=== PATIENT | female | born 1950 | race Caucasian/White ===

== ENCOUNTER 2016-07-13 06:37 | Outpatient (CLI) | payer BC, MEDICAID | END 2016-07-13 06:38 | disposition home or self-care (01) | DX: E11.9 Type 2 diabetes mellitus without complications (principal) ==

== ENCOUNTER 2016-10-18 07:45 | Outpatient (CLI) | payer BC, MEDICAID | END 2016-10-18 07:46 | disposition home or self-care (01) | DX: E11.9 Type 2 diabetes mellitus without complications (principal); E05.90 Thyrotoxicosis, unspecified without thyrotoxic crisis or storm ==

== ENCOUNTER 2017-01-25 09:41 | Emergency (ER) | payer OTHER, BC ==
[2017-01-25 09:50] VITALS: BP 174/64
[2017-01-25] MEDS ORDERED: ACETAMINOPHEN 325 MG TABLET PO STA (10:50)
[2017-01-25] MEDS ORDERED: LIDOCAINE PATCH 5% TOP STA (10:50)
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
[2017-01-25] MEDS ORDERED: LIDOCAINE PATCH 5% TOP ONE (10:56)
[2017-01-25] MEDS ORDERED: ACETAMINOPHEN 325 MG TABLET PO ONE (10:56)
--- NOTE | 2017-01-25 11:52 | XRAY Preliminary Report ---
Exam: XR Chest 2 View PA/LAT IMPRESSION: 1. No acute intrathoracic plain film abnormality. 2. Relatively stable nodular opacities projecting over the right upper lobe. [facility] SITE ID: [id number]
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
== END 2017-01-25 12:18 | disposition home or self-care (01) ==
LOC: ED 09:41
DX: S13.9XXA Sprain of joints and ligaments of unspecified parts of neck, initial encounter (principal); S33.5XXA Sprain of ligaments of lumbar spine, initial encounter; S20.219A Contusion of unspecified front wall of thorax, initial encounter; V43.52XA Car driver injured in collision with other type car in traffic accident, initial encounter; Y92.488 Other paved roadways as the place of occurrence of the external cause; I10 Essential (primary) hypertension; E11.9 Type 2 diabetes mellitus without complications; Z79.4 Long term (current) use of insulin; M19.90 Unspecified osteoarthritis, unspecified site
CPT/HCPCS: 71020; 99283; A9270; 84484

== ENCOUNTER 2017-03-31 08:00 | Outpatient (CLI) | payer MEDICARE, BC ==
[2017-03-31 13:21] LABS: CALCIUM 9.2 mg/dL (8.5-10.3); CREATININE 1.4 mg/dL (0.4-1.0); POTASSIUM 4.3 mmol/L (3.5-5.0)
[2017-03-31 13:47] LABS: THYROID STIMULATING HORMONE 1.48 uIU/mL (0.34-5.60)
[2017-03-31 14:15] LABS: HEMOGLOBIN A1C 1.17 g/dL
== END 2017-03-31 08:01 | disposition home or self-care (01) ==
LOC: LAB.N 08:00
PROVIDERS: ATTEND Family Medicine
DX: E05.90 Thyrotoxicosis, unspecified without thyrotoxic crisis or storm (principal); N18.9 Chronic kidney disease, unspecified; E11.9 Type 2 diabetes mellitus without complications
CPT/HCPCS: 36415; 80048; 83036; 84439; 84443

== ENCOUNTER 2017-08-16 08:00 | Outpatient (CLI) | payer BC, MEDICARE ==
[2017-08-16 13:03] LABS: CREATININE 1.2 mg/dL (0.4-1.0)
[2017-08-16 13:06] LABS: HB2 TOTAL 13.1 g/dL; HEMOGLOBIN A1C 1.08 g/dL; HEMOGLOBIN A1C % 9.7 % (4.6-6.2)
== END 2017-08-16 08:01 | disposition home or self-care (01) ==
LOC: LAB.N 08:00
PROVIDERS: ATTEND Family Medicine
DX: E11.65 Type 2 diabetes mellitus with hyperglycemia (principal)
CPT/HCPCS: 36415; 80048; 83036

== ENCOUNTER 2017-11-17 07:39 | Outpatient (CLI) | payer MEDICARE ==
[2017-11-17 13:42] LABS: ALBUMIN 4.1 g/dL (3.2-5.5); ALBUMIN/GLOBULIN RATIO 1.3 (1.0-2.2); BILIRUBIN,TOTAL 0.6 mg/dL (0.2-1.0); CALCIUM 8.9 mg/dL (8.5-10.3); CREATININE 1.3 mg/dL (0.4-1.0); TOTAL PROTEIN 7.3 g/dL (6.7-8.2)
[2017-11-17 13:51] LABS: HB2 TOTAL 13.4 g/dL; HEMOGLOBIN A1C 1.15 g/dL
[2017-11-17 14:00] LABS: THYROID STIMULATING HORMONE 1.79 uIU/mL (0.34-5.60)
[2017-11-17 14:02] LABS: FREE T4 (FREE THYROXINE) 0.69 ng/dL (0.58-1.64)
== END 2017-11-17 07:40 ==
LOC: LAB.N 07:39
PROVIDERS: ATTEND Family Medicine
DX: E11.65 Type 2 diabetes mellitus with hyperglycemia (principal); E05.90 Thyrotoxicosis, unspecified without thyrotoxic crisis or storm
CPT/HCPCS: 36415; 80053; 83036; 84439; 84443; 84481

== ENCOUNTER 2018-02-23 07:36 | Outpatient (CLI) | payer MEDICARE ==
[2018-02-23 13:53] LABS: CALCIUM 8.9 mg/dL (8.5-10.3); CREATININE 1.2 mg/dL (0.4-1.0)
[2018-02-23 14:03] LABS: THYROID STIMULATING HORMONE 1.41 uIU/mL (0.34-5.60)
[2018-02-23 14:05] LABS: FREE T4 (FREE THYROXINE) 0.66 ng/dL (0.58-1.64)
[2018-02-23 14:16] LABS: HB2 TOTAL 12.3 g/dL; HEMOGLOBIN A1C 0.99 g/dL; HEMOGLOBIN A1C % 9.5 % (4.6-6.2)
== END 2018-02-23 07:37 ==
LOC: LAB.N 07:36
PROVIDERS: ATTEND Family Medicine
DX: E11.65 Type 2 diabetes mellitus with hyperglycemia (principal); Z79.4 Long term (current) use of insulin; E05.90 Thyrotoxicosis, unspecified without thyrotoxic crisis or storm
CPT/HCPCS: 36415; 80048; 83036; 84439; 84443; 84481

== ENCOUNTER 2018-04-25 11:00 | Outpatient (CLI) | payer MEDICARE ==
--- NOTE | 2018-04-25 13:29 | XRAY Report ---
Reason: hx of inactive TB Procedure Date: 04/25/2018 Accession Number: [id number] / [id number] Procedure: XRN - Chest 1 View X-Ray CPT Code: 54834 FULL RESULT: EXAM: CHEST RADIOGRAPHY EXAM DATE: 04/25/2018 11:09 AM. CLINICAL HISTORY: History of inactive TB. COMPARISON: CHEST 2 VIEW PA/LAT 01/25/2017 11:20 AM. TECHNIQUE: 1 view. FINDINGS: Lungs/Pleura: Two nodules in the left upper lung are again seen and appear unchanged. No new focal opacities evident. No pleural effusion. No pneumothorax. Mediastinum: Within exam limitations, the cardiomediastinal contour is normal. Other: None. IMPRESSION: Stable exam. [facility]
== END 2018-04-25 11:01 | disposition home or self-care (01) ==
LOC: DI.N 11:00
PROVIDERS: ATTEND Family Medicine
DX: Z02.9 Encounter for administrative examinations, unspecified (principal); Z86.11 Personal history of tuberculosis
CPT/HCPCS: 71045

== ENCOUNTER 2018-07-19 08:00 | Outpatient (CLI) | payer MEDICARE ==
[2018-07-19 12:34] LABS: BASOPHILS # (AUTO) 0.1 10^3/uL (0.0-0.1); BASOPHILS % (AUTO) 0.9 %; EOSINOPHILS # (AUTO) 0.1 10^3/uL (0.0-0.7); EOSINOPHILS % (AUTO) 2.1 %; HGB - HEMOGLOBIN 12.7 g/dL (12.0-16.0); LYMPHOCYTES # (AUTO) 1.8 10^3/uL (1.5-3.5); LYMPHOCYTES % (AUTO) 26.2 %; MEAN CORPUSCULAR HEMOGLOBIN 30.8 pg (27.0-31.0); MEAN CORPUSCULAR VOLUME 90.5 fL (81.0-99.0); MEAN PLATELET VOLUME 8.4 fL (7.9-10.8); MONOCYTES # (AUTO) 0.5 10^3/uL (0.0-1.0); MONOCYTES % (AUTO) 6.6 %; NEUTROPHILS # (AUTO) 4.5 10^3/uL (1.5-6.6); NEUTROPHILS % (AUTO) 64.2 %; PLT - PLATELET COUNT 260 10^3/uL (130-450); RED BLOOD COUNT 4.12 10^6/uL (4.20-5.40); RED CELL DISTRIBUTION WIDTH 12.9 % (12.0-15.0)
[2018-07-19 13:08] LABS: ALBUMIN/GLOBULIN RATIO 1.3 (1.0-2.2); ALKALINE PHOSPHATASE 89 IU/L (42-121); ALT ALANINE AMINOTRANSFERASE 24 IU/L (10-60); AST ASPARTATE AMINOTRANSFERASE 23 IU/L (10-42); BILIRUBIN,TOTAL 0.6 mg/dL (0.2-1.0); BUN - BLOOD UREA NITROGEN 23 mg/dL (6-20); CHOL/HDL RATIO 4.2 (<4.4); CHOLESTEROL 154 mg/dL; CREATININE 1.2 mg/dL (0.4-1.0); GFR - MDRD 45 (>89); HDL CHOLESTEROL 37 mg/dL; LDL CHOLESTEROL,CALCULATED 68 mg/dL; LDL/HDL RATIO 1.8 (<4.4); TOTAL PROTEIN 7.1 g/dL (6.7-8.2); VLDL CHOLESTEROL 49 mg/dL
[2018-07-19 13:26] LABS: CALCIUM 9.2 mg/dL (8.5-10.3); CARBON DIOXIDE - CO2 24 mmol/L (21-32); CHLORIDE 107 mmol/L (101-111); GLUCOSE 134 mg/dL (70-100); SODIUM 139 mmol/L (135-145)
[2018-07-20 19:23] LABS: HEMOGLOBIN A1C 1.06 g/dL; HEMOGLOBIN A1C % 9.6 % (4.6-6.2)
== END 2018-07-19 23:59 | disposition home or self-care (01) ==
LOC: LAB.N 08:00
PROVIDERS: ATTEND Physician Assistant Medical
DX: E05.00 Thyrotoxicosis with diffuse goiter without thyrotoxic crisis or storm (principal); E11.65 Type 2 diabetes mellitus with hyperglycemia; E78.5 Hyperlipidemia, unspecified
CPT/HCPCS: 36415; 80053; 80061; 83036; 83721; 84443; 85025

== ENCOUNTER 2018-11-08 08:00 | Outpatient (CLI) | payer MEDICARE ==
[2018-11-08 13:14] LABS: HB2 TOTAL 12.7 g/dL; HEMOGLOBIN A1C 0.99 g/dL; HEMOGLOBIN A1C % 9.3 % (4.6-6.2)
== END 2018-11-08 23:59 | disposition home or self-care (01) ==
LOC: LAB.N 08:00
PROVIDERS: ATTEND Physician Assistant Medical
DX: E11.9 Type 2 diabetes mellitus without complications (principal)
CPT/HCPCS: 36415; 83036

== ENCOUNTER 2019-03-06 08:00 | Outpatient (CLI) | payer MEDICARE ==
[2019-03-06 12:24] LABS: BUN - BLOOD UREA NITROGEN 26 mg/dL (6-20); CALCIUM 8.9 mg/dL (8.5-10.3); CARBON DIOXIDE - CO2 25 mmol/L (21-32); CHLORIDE 107 mmol/L (101-111); CHOL/HDL RATIO 3.4 (<4.4); CHOLESTEROL 120 mg/dL; CREATININE 1.2 mg/dL (0.4-1.0); GFR - MDRD 45 (>89); GLUCOSE 101 mg/dL (70-100); HDL CHOLESTEROL 35 mg/dL; LDL CHOLESTEROL,CALCULATED 51 mg/dL; LDL/HDL RATIO 1.5 (<4.4); SODIUM 141 mmol/L (135-145); VLDL CHOLESTEROL 34 mg/dL
[2019-03-06 12:47] LABS: HB2 TOTAL 11.7 g/dL; HEMOGLOBIN A1C 1.01 g/dL
== END 2019-03-06 23:59 | disposition home or self-care (01) ==
LOC: LAB.N 08:00
PROVIDERS: ATTEND Physician Assistant Medical
DX: E11.65 Type 2 diabetes mellitus with hyperglycemia (principal); N18.9 Chronic kidney disease, unspecified; E11.22 Type 2 diabetes mellitus with diabetic chronic kidney disease; E78.5 Hyperlipidemia, unspecified; Z79.4 Long term (current) use of insulin
CPT/HCPCS: 36415; 80048; 80061; 83036; 83721

== ENCOUNTER 2019-03-13 08:00 | Outpatient (CLI) | payer MEDICARE | END 2019-03-13 23:59 | disposition home or self-care (01) | LOC: LAB.N 08:00 | PROVIDERS: ATTEND Physician Assistant Medical | DX: Z09 Encounter for follow-up examination after completed treatment for conditions other than malignant neoplasm (principal); Z86.11 Personal history of tuberculosis | CPT/HCPCS: 36415; 81599; 86480 ==

== ENCOUNTER 2019-03-21 11:39 | Outpatient (CLI) | payer MEDICARE ==
--- NOTE | 2019-03-22 09:54 | XRAY Report ---
Reason: TB ACTIVE Procedure Date: 03/21/2019 Accession Number: [id number] / [id number] Procedure: XRN - Chest 2 View X-Ray CPT Code: 02061 FULL RESULT: EXAM: CHEST RADIOGRAPHY EXAM DATE: 03/21/2019 11:56 AM. CLINICAL HISTORY: TB, active. COMPARISON: CHEST 1 VIEW 04/25/2018 11:15 AM. TECHNIQUE: 2 views. FINDINGS: Lungs/Pleura: Two right upper lobe nodules again identified. The more cephalad has increased in size, measuring 12 mm transversely versus 8 mm transversely on the comparison exam. This projects over the posterior right fourth rib. The lungs appear clear elsewhere. No pleural effusions. Mediastinum: Heart and mediastinal contours are unremarkable. Other: None. IMPRESSION: Interval increase in measured size of the more cephalad of 2 nodules in the right upper lobe. The lungs elsewhere appear clear. [facility]
== END 2019-03-21 11:40 | disposition home or self-care (01) ==
LOC: DI.N 11:39
PROVIDERS: ATTEND Physician Assistant Medical
DX: A15.9 Respiratory tuberculosis unspecified (principal)
CPT/HCPCS: 71046

== ENCOUNTER 2019-05-15 12:49 | Outpatient (CLI) | payer MEDICARE ==
--- NOTE | 2019-05-16 16:16 | CT Report ---
Reason: HX OF TB, LUNG NODULE Procedure Date: 05/15/2019 Accession Number: [id number] / [id number] Procedure: CT - CHEST WO CPT Code: Final Report FULL RESULT: EXAM: CT CHEST EXAM DATE: 05/15/2019 01:14 PM. CLINICAL HISTORY: History of TB, lung nodule. COMPARISONS: CHEST 2 VIEW 03/21/2019 11:56 AM. CHEST 1 VIEW 04/25/2018 11:15 AM. TECHNIQUE: Routine helical CT imaging was performed through the chest. IV contrast: None. Reconstructions: Coronal and sagittal. In accordance with CT protocol optimization, one or more of the following dose reduction techniques were utilized for this exam: automated exposure control, adjustment of mA and/or KV based on patient size, or use of iterative reconstructive technique. FINDINGS: Lungs/Pleura: Corresponding to the chest radiographic findings in the right upper lung is a somewhat tubular-appearing partially calcified mass which measures up to 2.9 x 0.9 cm on image 81 of series 4 and up to 1.7 x 2.0 cm in a lower portion on image 89 series 4 in axial visualization. Coronally, the mass extends for a craniocaudal extent of 4.5 cm from image 51 through 58 on series 7. Surrounding architectural distortion with suggestion of scarring is seen as well as multiple satellite pulmonary nodules in the surrounding pulmonary parenchyma, for example image 74, 79, 65 on series 4. Evaluation of fine pulmonary detail is somewhat limited by motion artifact. There is suggestion of increased peripheral interstitial thickening and groundglass markings at the lung bases, potentially artifactual due to motion. There is bilateral apical pleural thickening. There is no pleural effusion or pneumothorax. Mediastinum: No definite lymphadenopathy by size criteria in mediastinum or hilar regions. Evaluation of the nehal is somewhat limited by absence of intravenous contrast. Bones: Note is made of a hyperdense 1.5 x 0.9 cm lesion in a posterior right rib, T8. Appearance is less typical of a bone island and may represent prior treatment response. Visualized Abdomen: Suggestion of left periaortic retroperitoneal lymphadenopathy as seen on image 304 series 4, incompletely evaluated. Other: Accounting for the abnormal right superior mediastinum paramediastinal border on the previous plain radiographs, is an anterior neck mass extending into the thorax which measures at least 6.9 x 4.3 cm for the portion visualized on this examination, the mass appears to emanate from a markedly enlarged thyroid gland which is not completely visualized. This mass is partially calcified. Multiple apparent breast nodules predominantly on the right side should be correlated to recent mammography, largest well-circumscribed nodule in the right measures up to 1.8 cm and there is question of a partially obscured 2.5 x 1.4 cm nodule in the right breast cone . IMPRESSION: Right upper lobe pneumonia mass with satellite lesions and partial calcifications as well as surrounding architectural distortion, suggestive of scarring as described. 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 While not typical of the appearance, malignancy would be difficult to exclude by imaging. Incomplete visualization of a superior mediastinal/thyroid mass, recommend thyroid ultrasound for characterization, greater than 7 cm in size. Question upper abdominal retroperitoneal lymphadenopathy, not well seen on this study. Suggestion of nodules in the breasts, recommend correlation to recent mammographic results. Recommend mammography if this has not been performed. [facility]
== END 2019-05-15 12:50 | disposition home or self-care (01) ==
LOC: DI 12:49
PROVIDERS: ATTEND Physician Assistant Medical
DX: J18.9 Pneumonia, unspecified organism (principal); R91.8 Other nonspecific abnormal finding of lung field; Z86.11 Personal history of tuberculosis; J98.4 Other disorders of lung; R22.1 Localized swelling, mass and lump, neck
CPT/HCPCS: 71250

== ENCOUNTER 2019-06-15 12:22 | Outpatient (CLI) | payer MEDICARE ==
--- NOTE | 2019-06-18 08:43 | Ultrasound Report ---
Reason: GOITER Procedure Date: 06/15/2019 Accession Number: [id number] / [id number] Procedure: US - Head or Neck Soft Tissue CPT Code: Final Report FULL RESULT: EXAM: THYROID ULTRASOUND EXAM DATE: 06/15/2019 02:53 PM. CLINICAL HISTORY: Goiter. COMPARISON: None. TECHNIQUE: Real time sonographic imaging of the thyroid was performed by the gut sorter. Multiple software sales representative static images were saved for review. FINDINGS: THYROID GLAND: Right Lobe: 8.6 x 3.8 x 3.7 cm, volume 63 cc. Diffusely heterogeneous background echotexture. Right Lobe Nodules: Upper pole mostly calcified low suspicion nodule 0.6 x 0.6 cm. Superior pole heterogeneous low suspicion nodule 3.1 x 2.4 x 3.1 cm. Lower pole calcification low suspicion 0.6 x 0.7 cm. Left Lobe: 9.1 x 3.1 x 2.9 cm, volume 43 cc. Diffusely heterogeneous background echotexture. Left Lobe Nodules: Inferior pole mostly solid isoechoic to hypoechoic low suspicion nodule 2.5 x 1.5 x 1.5 cm. Isthmus: 1.2 cm AP. Isthmic Nodules: Complex cystic very low suspicion nodule 1.8 x 1.4 x 1.4 cm. LYMPH NODES: No adenopathy demonstrated in the central or lateral compartment. OTHER: None. IMPRESSION: Multinodular goiter. Consider histologic evaluation of right superior pole 3.1 cm nodule and left lower pole 2.5 cm nodule secondary to size. Management recommendations are based on 2015 [place] [employer] Management Guidelines for Adult Patients with Thyroid Nodules and Differentiated Thyroid Cancer. [facility]
== END 2019-06-15 12:23 | disposition home or self-care (01) ==
LOC: DI 12:22
PROVIDERS: ATTEND Physician Assistant Medical
DX: E04.2 Nontoxic multinodular goiter (principal)
CPT/HCPCS: 76536

== ENCOUNTER 2019-07-06 09:13 | Outpatient (CLI) | payer MEDICARE ==
[2019-07-06 12:03] LABS: BASOPHILS # (AUTO) 0.1 10^3/uL (0.0-0.1); BASOPHILS % (AUTO) 0.8 %; EOSINOPHILS # (AUTO) 0.1 10^3/uL (0.0-0.7); HGB - HEMOGLOBIN 12.2 g/dL (12.0-16.0); LYMPHOCYTES # (AUTO) 1.7 10^3/uL (1.5-3.5); LYMPHOCYTES % (AUTO) 27.4 %; MEAN CORPUSCULAR HEMOGLOBIN 30.8 pg (27.0-31.0); MEAN CORPUSCULAR HGB CONC 33.1 g/dL (32.0-36.0); MEAN CORPUSCULAR VOLUME 93.2 fL (81.0-99.0); MEAN PLATELET VOLUME 9.9 fL (7.9-10.8); MONOCYTES # (AUTO) 0.5 10^3/uL (0.0-1.0); MONOCYTES % (AUTO) 7.9 %; NEUTROPHILS # (AUTO) 3.7 10^3/uL (1.5-6.6); NEUTROPHILS % (AUTO) 61.6 %; PLT - PLATELET COUNT 256 10^3/uL (130-450); RED BLOOD COUNT 3.96 10^6/uL (4.20-5.40); RED CELL DISTRIBUTION WIDTH 11.9 % (12.0-15.0); WHITE BLOOD COUNT 6.1 x10^3/uL (4.8-10.8)
[2019-07-06 12:11] LABS: CALCIUM 9.2 mg/dL (8.5-10.3); CREATININE 1.5 mg/dL (0.4-1.0)
[2019-07-06 13:13] LABS: THYROID STIMULATING HORMONE 1.71 uIU/mL (0.34-5.60)
[2019-07-06 13:15] LABS: FREE T4 (FREE THYROXINE) 0.77 ng/dL (0.58-1.64)
== END 2019-07-06 23:59 | disposition home or self-care (01) ==
LOC: LAB.N 09:13
PROVIDERS: ATTEND Physician Assistant Medical
DX: E05.90 Thyrotoxicosis, unspecified without thyrotoxic crisis or storm (principal)
CPT/HCPCS: 36415; 80048; 84439; 84443; 85025

== ENCOUNTER 2019-07-17 12:25 | Outpatient (CLI) | payer MEDICARE ==
--- NOTE | 2019-07-17 16:56 | Ultrasound Report ---
Reason: ABNORMAL CT Procedure Date: 07/17/2019 Accession Number: [id number] / [id number] Procedure: US - Breast Unilateral Limited CPT Code: Final Report FULL RESULT: EXAM: DIAGNOSTIC DIG BILATERAL, BREAST BILATERAL LIMITED ULTRASOUND DATE: 07/17/2019 2:34 PM CLINICAL HISTORY: Follow-up chest CT 05/15/2019 demonstrating multiple breast nodules. For further evaluation. COMPARISON: Chest CT 05/15/2019; mammogram 01/28/2012, 10/08/2010, 10/16/2009, 09/25/2008 and 09/14/2007. MAMMOGRAM: TECHNIQUE: (B) - Bilateral CC and MLO views were obtained. PARENCHYMAL PATTERN: (D) - The breasts demonstrate heterogeneously dense fibroglandular parenchyma bilaterally. FINDINGS: Bilateral soft tissue nodules are present. On the right the 2 dominant are in the immediate retroareolar breast and at the 11:00 position approximately 3.5 cm from the nipple. On the left there are 2 adjacent nodules in the upper outer breast 4 to 5 cm from the nipple a third nodule is seen 8 to 9 cm from the nipple in the superior posterior left breast. These nodules appear to have been present on prior studies and are grossly stable but may be slightly more apparent due to increasing fatty replacement of the breast tissue. There are no suspicious calcifications, skin thickening, or areas of distortion. BILATERAL BREAST ULTRASOUND: TECHNIQUE: Real time scanning by the public relations supervisor with me present with saved static images reviewed. FINDINGS: Right breast: Corresponding to the mammographic findings are: 1: An ovoid hypoechoic well-circumscribed avascular 1.7 x 1.7 x 1.6 cm nodule 11:00 position 4 cm from the nipple . 2: A 2 x 1.5 x 1.3 cm complex heterogeneous well-circumscribed solid minimally vascular mass. Left breast: Corresponding to the mammographic findings are: 1. Solid well-circumscribed avascular hypoechoic 1.1 x 0.5 x 1.1 cm nodule 12:00 position 4 cm from the nipple. 2. 1.8 x 1.1 x 0.6 cm avascular hypoechoic nodular region with septations adjacent to the nodule described immediately above. 3. 0.7 x 0.5 x 0.8 cm hypoechoic well-circumscribed avascular nodule 1:00 position 6 cm from the nipple. IMPRESSION: Probably Benign. BI-RADS category 3. While all of the nodules appear mammographically stable, ultrasound has not been previously performed; thus stability by ultrasound has not been documented. RECOMMENDATION: (6MOS) - Recommend 6 month follow-up bilateral breast ultrasound of the nodules described above. BI-RADS CATEGORY: (3) - Probably Benign. STANDARD QUALIFYING STATEMENTS: 1. This examination was not reviewed with the aid of Computer-Aided Detection (CAD). 2. A negative or benign imaging report should not preclude biopsy if clinically suspicious findings are present. 3. Dense breasts may obscure an underlying neoplasm. 4. This examination was reviewed with the aid of 3D breast imaging (tomosynthesis).
== END 2019-07-17 12:26 | disposition home or self-care (01) ==
LOC: DI 12:25
DX: N63.11 Unspecified lump in the right breast, upper outer quadrant (principal); N63.41 Unspecified lump in right breast, subareolar; N63.21 Unspecified lump in the left breast, upper outer quadrant
CPT/HCPCS: 76642; 77066

== ENCOUNTER 2019-08-30 08:39 | Outpatient (CLI) | payer MEDICARE ==
[~2019-08-30 08:39] MED LIST: BUFFERED LIDOCAINE 10 ML SYRINGE ONE
--- NOTE | 2019-08-30 11:28 | Ultrasound Report ---
Reason: GOITER Procedure Date: 08/30/2019 Accession Number: [id number] / [id number] Procedure: US - FNA Bx w/US Gnd les CPT Code: 41373 Final Report FULL RESULT: EXAM: THYROID FINE NEEDLE ASPIRATION EXAM DATE: 08/30/2019 10:15 AM. CLINICAL HISTORY: Goiter. COMPARISON: None. TECHNIQUE: The risks, benefits, and alternatives of the procedure were discussed with the patient. All questions were answered. Written and verbal consent were obtained. A site was marked over the right and left thyroid nodule in question under live sonographic evaluation, then subsequently prepped and draped in a sterile manner. Local anesthesia was performed with 1% lidocaine. A total of 4 22 gauge fine-needle aspirates/passes each were performed through the right and left thyroid nodule in question, then passed to the cmm technician for preparation. Estimated blood loss was 0 mL. Sonographic images demonstrate needle placement within the right and left thyroid nodule in question. FINDINGS IMPRESSION: FNA of right and left thyroid nodule. [facility]
[2019-08-30] MEDS ORDERED: BUFFERED LIDOCAINE 10 ML SYRINGE IU ONE (12:52)
== END 2019-08-30 08:40 | disposition home or self-care (01) ==
LOC: DI 08:39
PROVIDERS: ATTEND Physician Assistant Medical
DX: E04.2 Nontoxic multinodular goiter (principal)
CPT/HCPCS: 10005; 10006

== ENCOUNTER 2019-09-04 08:00 | Outpatient (CLI) | payer MEDICARE ==
[2019-09-04 12:48] LABS: HB2 TOTAL 12.3 g/dL; HEMOGLOBIN A1C 1.14 g/dL; HEMOGLOBIN A1C % 10.6 % (4.6-6.2)
== END 2019-09-04 23:59 | disposition home or self-care (01) ==
LOC: LAB.N 08:00
PROVIDERS: ATTEND Physician Assistant Medical
DX: E11.65 Type 2 diabetes mellitus with hyperglycemia (principal); Z79.4 Long term (current) use of insulin
CPT/HCPCS: 36415; 83036

== ENCOUNTER 2019-12-26 07:18 | Outpatient (CLI) | payer MEDICARE ==
[2019-12-26 13:20] LABS: HB2 TOTAL 12.1 g/dL; HEMOGLOBIN A1C 1.12 g/dL; HEMOGLOBIN A1C % 10.6 % (4.6-6.2)
[2019-12-26 15:13] LABS: CALCIUM 8.9 mg/dL (8.5-10.3); CREATININE 1.3 mg/dL (0.4-1.0)
== END 2019-12-26 23:59 | disposition home or self-care (01) ==
LOC: LAB.WCP 07:18
PROVIDERS: ATTEND Family Medicine
DX: E11.9 Type 2 diabetes mellitus without complications (principal)
CPT/HCPCS: 36415; 80048; 82043; 82570; 83036

== ENCOUNTER 2020-05-07 08:00 | Outpatient (CLI) | payer MEDICARE ==
[2020-05-07 12:25] LABS: CALCIUM 9.3 mg/dL (8.5-10.3); CREATININE 1.3 mg/dL (0.4-1.0)
[2020-05-07 13:37] LABS: HEMOGLOBIN A1c% 9.8 % (4.27-6.07)
== END 2020-05-07 23:59 | disposition home or self-care (01) ==
LOC: LAB.WCP 08:00
PROVIDERS: ATTEND Physician Assistant
DX: I10 Essential (primary) hypertension (principal); E11.8 Type 2 diabetes mellitus with unspecified complications; Z79.4 Long term (current) use of insulin
CPT/HCPCS: 36415; 80048; 83036

== ENCOUNTER 2020-08-06 10:33 | Outpatient (CLI) | payer MEDICARE ==
--- NOTE | 2020-08-07 09:47 | Ultrasound Report ---
LIMITED ULTRASOUND OF RIGHT BREAST: 08/06/2020 CLINICAL: Patient returns for additional imaging over masses in both breasts. Six month follow-up. Comparison is made to exams dated: 08/06/2020 mammogram, 07/17/2019 ultrasound, 07/17/2019 ultrasound, 07/17/2019 mammogram, 01/28/2012 mammogram, and 02/07/2011 mammogram - [facility]. Ultrasound of the right breast 11 o'clock, and retroareolar regions was performed. There is a benign 2.3 cm x 1.7 cm x 1 cm oval mass with a circumscribed margin in the right breast at 5 o'clock anterior depth. This oval mass is heterogeneously echogenic. This abnormality is not sig nificantly changed and correlates with mammography findings. Color flow imaging demonstrates that th ere is vascularity present. There also is a stable benign 1.8 cm x 1.8 cm x 0.7 cm oval mass in the right breast at 11 o'clock mi ddle depth 4 cm from the nipple with the long axis parallel to the skin. This oval mass is hypoechoi c. This correlates with mammography findings. Color flow imaging demonstrates that there is no vasc ularity present. IMPRESSION: BENIGN There is no sonographic evidence of malignancy. The 2.3 cm oval mass in the right breast at 5 o'clock anterior depth most likely is a fibroadenoma an d is benign. The stable 1.8 cm oval mass in the right breast at 11 o'clock middle depth is also most likely a fibr oadenoma and is benign. No significant size change in either of these masses by mammography over multiple years. Return to annual right breast mammogram screening schedule is recommended. Findings and recommendations were conveyed to the patient at time of exam. This exam was interpreted at Station ID: [id number]. Electronically Signed By: Shea sanchez/:08/06/2020 13:39:14 Ultrasound BI-RADS: 2 Benign BI-RADS CATEGORY: (2) - 2 RECOMMENDATION: (ANNUAL) - Recommend routine annual screening mammography. [id number] return to screening LATERALITY: (B)
--- NOTE | 2020-08-07 09:47 | Ultrasound Report ---
LIMITED ULTRASOUND OF LEFT BREAST: 08/06/2020 CLINICAL: Patient returns for additional imaging over masses in both breasts. Six month follow-up. Comparison is made to exams dated: 08/06/2020 mammogram, 07/17/2019 ultrasound, 07/17/2019 ultrasound, 07/17/2019 mammogram, 01/28/2012 mammogram, [facility] Ultrasound of the left breast 12-1 o'clock region was performed. There is a 0.5 cm x 0.9 cm x 0.4 cm irregular mass in the left axillary tail 6 cm from the nipple. T his irregular mass displays posterior acoustic shadowing. This abnormality is increased in size and correlates with mammography findings. Color flow imaging demonstrates that there is no vascularity p resent. There also is a 1 cm x 1.3 cm x 0.6 cm oval mass with a circumscribed margin in the left breast at 12 o'clock middle depth 4 cm from the nipple with the long axis parallel to the skin. This oval mass i s hypoechoic. This abnormality is not significantly changed and correlates with mammography findings . Color flow imaging demonstrates that there is no vascularity present. Additionally, there is a benign appearing irregular area of fibrocystic tissue in the left breast at 1 o'clock middle depth. This abnormality is not significantly changed. This may or may not correspo nd to focal mammographic findings. IMPRESSION: SUSPICIOUS OF MALIGNANCY The 0.5 cm x 0.9 cm x 0.4 cm irregular mass in the left axillary tail is suspicious of malignancy. A n ultrasound guided biopsy is recommended. The 1 cm x 1.3 cm x 0.6 cm oval mass in the left breast at 12 o'clock middle depth is most consistent with a fibroadenoma and is benign. The irregular area of tissue in the left breast at 1 o'clock middle depth is probably fibrocystic gina nge and is benign. Findings and recommendations were discussed with the patient by Dr Pink at time of exam. This exam was interpreted at Station ID: [id number]. Electronically Signed By: Shea sanchez/:08/06/2020 13:44:04 Ultrasound BI-RADS: 4 Suspicious for malignancy BI-RADS CATEGORY: (4) - 4 None [id number] Immediate follow-up LATERALITY: ()
--- NOTE | 2020-08-07 09:47 | Mammography Report ---
BILATERAL DIGITAL DIAGNOSTIC MAMMOGRAM 3D/2D: 08/06/2020 CLINICAL: Palpable left breast lump by physician. Comparison is made to exams dated: 07/17/2019 mammogram, 01/28/2012 mammogram, 02/07/2011 mammogram, and 10/16/2009 mammogram - [facility]. The tissue of both breasts is heterogeneously d ense. This may lower the sensitivity of mammography. There is a stable 2.1 cm oval mass with a circumscribed margin in the right breast at 12 o'clock midd le depth. There also is a stable 2.8 cm oval mass with a circumscribed margin in the right breast at 5 o'clock anterior depth. There is a stable 1.3 cm oval mass in the left breast at 12 o'clock middle depth. There also is a stable 1.4 cm oval mass in the left breast at 12 o'clock anterior depth. Additionally, there is a stable 8 mm irregular asymmetry in the left breast at 1 o'clock posterior de pth. No other significant masses or calcifications are seen in either breast. IMPRESSION: INCOMPLETE: NEEDS ADDITIONAL IMAGING EVALUATION The stable 2.1 cm oval mass in the right breast at 12 o'clock middle depth is indeterminate. The stable 2.8 cm oval mass in the right breast at 5 o'clock anterior depth is indeterminate. The stable 1.3 cm oval mass in the left breast at 12 o'clock middle depth is indeterminate. The stable 1.4 cm oval mass in the left breast at 12 o'clock anterior depth is indeterminate. The stable 8 mm irregular asymmetry in the left breast at 1 o'clock posterior depth is indeterminate. Bilateral breast ultrasound is recommended for full evaluation of all areas. This was performed immed iately following this exam. This exam was interpreted at Station ID: [id number]. NOTE: For mammograms, a report in lay terms will be sent to the patient. Approximately 15% of breast malignancies will not be visualized mammographically. In the management of a palpable breast mass, a negative mammogram must not discourage biopsy of a clinically suspicious lesion. Electronically Signed By: Shea sanchez/:08/06/2020 12:05:42 ACR BI-RADS Category 0: Incomplete 3340F PARENCHYMAL PATTERN: (D) - The breast(s) demonstrate(s) heterogeneously dense fibroglandular parenchy ma. BI-RADS CATEGORY: (0) - 0 Ultrasound [id number] Immediate follow-up LATERALITY: (B)
== END 2020-08-06 10:34 | disposition home or self-care (01) ==
LOC: DI 10:33
PROVIDERS: ATTEND Physician Assistant Medical
DX: N63.14 Unspecified lump in the right breast, lower inner quadrant (principal); N63.11 Unspecified lump in the right breast, upper outer quadrant; N63.32 Unspecified lump in axillary tail of the left breast; N63.25 Unspecified lump in the left breast, overlapping quadrants; R92.8 Other abnormal and inconclusive findings on diagnostic imaging of breast

== ENCOUNTER 2020-08-18 12:20 | Outpatient (CLI) | payer MEDICARE ==
[~2020-08-18 12:20] MED LIST changes: +LIDOCAINE 1%-EPI 1:100000 20 ML MDV ONE
[2020-08-18] MEDS ORDERED: BUFFERED LIDOCAINE 10 ML SYRINGE ONE (14:46)
[2020-08-18] MEDS: BUFFERED LIDOCAINE 10 ML SYRINGE IU ONE ×2 (16:16→16:17)
[2020-08-18] MEDS ORDERED: LIDOCAINE 1%-EPI 1:100000 20 ML MDV SUBQ ONE (16:18)
--- NOTE | 2020-08-20 07:50 | Mammography Report ---
UNILATERAL LEFT DIGITAL DIAGNOSTIC MAMMOGRAM 3D/2D: 08/18/2020 CLINICAL: Post left breast ultrasound biopsy clip placement imaging. Comparison is made to exams dated: 08/06/2020 mammogram, 07/17/2019 mammogram, 01/28/2012 mammogram, and 02/07/2011 mammogram - [facility]. The tissue of left breast is heterogeneously de nse. This may lower the sensitivity of mammography. There is a marker clip in the appropriate position in the left breast at 1 o'clock middle depth. Thi s marker clip placement is at the biopsy site. The second marker clip is not seen mammographically at the posterior axillary tail. This is likely d ue to extreme posterior positioning abutting the chest wall. Exaggerated CC views were not submitted . IMPRESSION: POST PROCEDURE MAMMOGRAM FOR MARKER PLACEMENT There was a successful marker clip placement in the left breast at 1 o'clock middle depth. Marker clip placement in the left axillary tail is not seen mammographically, due to far posterior de pth against the chest wall. Future imaging is recommended as follows: 08/07/2021 screening mammogram. This exam was interpreted at Station ID: [id number]. NOTE: For mammograms, a report in lay terms will be sent to the patient. Approximately 15% of breast malignancies will not be visualized mammographically. In the management of a palpable breast mass, a negative mammogram must not discourage biopsy of a clinically suspicious lesion. Electronically Signed By: Yazan barakat/:08/19/2020 15:00:22 ACR BI-RADS Category Post-procedure mammogram for marker placement PARENCHYMAL PATTERN: (D) - The breast(s) demonstrate(s) heterogeneously dense fibroglandular chaitanya bianchi. BI-RADS CATEGORY: () - Biopsy follow-up [id number] Immediate follow-up LATERALITY: (B)
--- NOTE | 2020-08-20 13:06 | Ultrasound Report ---
MULTIPLE ULTRASOUND GUIDED BIOPSIES LEFT BREAST USING VACUUM DEVICE WITH MARKING DEVICES INSERTED AND POST DIGITAL MAMMOGRAPHIC IMAGIN08/18/2020 CLINICAL: Left breast mass. PATIENT CONSENT: Risks (minor bleeding, infection, vasovagal reaction and repeat procedure), benefits and alternatives were explained to the patient and written informed consent was obtained. Correlation is made to exams dated: 08/06/2020 ultrasound, 08/06/2020 ultrasound, 08/06/2020 mammogram, 07/17/2019 ultrasound, 07/17/2019 ultrasound, and 07/17/2019 mammogram - [facility]. An ultrasound guided biopsy using real-time ultrasound was performed for the lobulated mass measuring 1.1 x 1 x 0.6 cm located in the left breast at 1 o'clock middle depth 6 cm from the nipple. The ski n was prepped in the usual manner. Local anesthetic was administered to the access site. The abnorm ality was approached from the lateral aspect. A biopsy needle was placed adjacent to the abnormality under ultrasound guidance. Once the needle was documented to be in the correct location, 5 specimen s were obtained using the Mammotome biopsy system. A clip was inserted into the biopsy cavity. The specimens were sent to the laboratory for pathological analysis. On further review of images, the above lesion was probably correlates to the possible (technically in determinate) fibroadenoma. The lesion recommended for biopsy on the comparison study appeared to be separate from this and more posterior along the chest wall at the axillary tail. Therefore, after detailed discussion with the p atient, a second biopsy was performed. A second ultrasound guided biopsy using real-time ultrasound was performed for the irregular shaped m ass located in the left axillary tail, posterior depth adjacent to the chest wall. 0.7 x 0.5 x 0.6 cm on the current exam. The skin was prepped in the usual manner. Local anesthetic was administered to the access site. A small incision was made in the breast. The abnormality was approached from th e lateral aspect. A biopsy needle was placed adjacent to the abnormality under ultrasound guidance. Once the needle was documented to be in the correct location, 7 specimens were obtained using the Ma mmotome biopsy system. A clip was inserted into the biopsy cavity. The specimens were sent to the l aboratory for pathological analysis. IMPRESSION: ULTRASOUND GUIDED BIOPSY BENIGN 1) Ultrasound guided biopsy of the 1.1 cm mass in the left breast at 1 o'clock middle depth was succe ssful. Pathology demonstrate " Fibroepithelial lesion consistent with fibroadenoma. Negative for atypia or m alignancy." Pathology results are concordant with imaging findings. Return to screening mammogram is recommended. 2) Ultrasound guided biopsy of the 0.7 cm mass in the left axillary tail posterior depth adjacent to the chest wall was successful. Pathology demonstrate " Fibroepithelial lesion consistent with fibroadenoma. Negative for atypia or m alignancy." Pathology results are concordant with imaging findings. Return to screening mammogram is recommended. This exam was interpreted at Station ID: [id number]. Yazan barakat,slc/:08/20/2020 10:56:52 BI-RADS CATEGORY: () - Unspecified - other recall n/a LATERALITY: (B)
== END 2020-08-18 12:21 | disposition home or self-care (01) ==
LOC: DI 12:20
PROVIDERS: ATTEND Physician Assistant Medical
DX: D24.2 Benign neoplasm of left breast (principal)
CPT/HCPCS: 19083

== ENCOUNTER 2020-08-21 08:00 | Outpatient (CLI) | payer MEDICARE ==
[2020-08-21 12:51] LABS: HEMOGLOBIN A1c% 10.1 % (4.27-6.07)
[2020-08-21 13:20] LABS: BASOPHILS # (AUTO) 0.1 10^3/uL (0.0-0.1); EOSINOPHILS # (AUTO) 0.1 10^3/uL (0.0-0.7); HGB - HEMOGLOBIN 12.6 g/dL (12.0-16.0); LYMPHOCYTES % (AUTO) 29.1 %; MEAN CORPUSCULAR HGB CONC 33.3 g/dL (32.0-36.0); MEAN CORPUSCULAR VOLUME 92.9 fL (81.0-99.0); MEAN PLATELET VOLUME 10.5 fL (7.9-10.8); MONOCYTES # (AUTO) 0.5 10^3/uL (0.0-1.0); MONOCYTES % (AUTO) 6.7 %; NEUTROPHILS # (AUTO) 4.2 10^3/uL (1.5-6.6); NEUTROPHILS % (AUTO) 61.1 %; PLT - PLATELET COUNT 255 10^3/uL (130-450); RED BLOOD COUNT 4.07 10^6/uL (4.20-5.40); RED CELL DISTRIBUTION WIDTH 11.9 % (12.0-15.0); WHITE BLOOD COUNT 6.9 x10^3/uL (4.8-10.8)
[2020-08-21 13:47] LABS: ALBUMIN 4.2 g/dL (3.2-5.5); ALBUMIN/GLOBULIN RATIO 1.4 (1.0-2.2); ALKALINE PHOSPHATASE 103 IU/L (42-121); ALT ALANINE AMINOTRANSFERASE 27 IU/L (10-60); AST ASPARTATE AMINOTRANSFERASE 21 IU/L (10-42); BILIRUBIN,TOTAL 0.4 mg/dL (0.2-1.0); BUN - BLOOD UREA NITROGEN 29 mg/dL (6-20); CALCIUM 9.2 mg/dL (8.5-10.3); CARBON DIOXIDE - CO2 27 mmol/L (21-32); CHLORIDE 103 mmol/L (101-111); CHOLESTEROL 142 mg/dL; CREATININE 1.8 mg/dL (0.4-1.0); GLUCOSE 231 mg/dL (70-100); HDL CHOLESTEROL 47 mg/dL; LDL CHOLESTEROL,CALCULATED 69 mg/dL; LDL/HDL RATIO 1.5 (<4.4); TOTAL PROTEIN 7.2 g/dL (6.7-8.2); VLDL CHOLESTEROL 26 mg/dL
== END 2020-08-21 23:59 | disposition home or self-care (01) ==
LOC: LAB.WCP 08:00
PROVIDERS: ATTEND Physician Assistant Medical
DX: E78.5 Hyperlipidemia, unspecified (principal); E11.9 Type 2 diabetes mellitus without complications; D53.9 Nutritional anemia, unspecified; E05.90 Thyrotoxicosis, unspecified without thyrotoxic crisis or storm
CPT/HCPCS: 36415; 80053; 80061; 83036; 83721; 84443; 85025

== ENCOUNTER 2020-09-24 10:36 | Outpatient (CLI) | payer MEDICARE ==
--- NOTE | 2020-09-24 14:50 | DEXA Report ---
PROCEDURE: Dexa Spine and/or Hip INDICATIONS: POST MENOPAUSAL TECHNIQUE: Dual energy x-ray absorptiometry (DXA) was performed on a [employer] [facility]. Regions measur ed are the AP Spine, femoral neck, and if needed forearm. COMPARISON: None. FINDINGS: Lumbar Spine: Bone Mineral Density 1.145 g/cm/cm,T score -0.3, normal Left Hip: Bone Mineral Density 0.941 g/cm/cm,T score -0.5, normal Left Femoral Neck: Bone Mineral Density 0.830 g/cm/cm, T score -1.5, mild osteopenia (T score greater or equal to -1.0: NORMAL) (T score from -1.1 to -2.4: OSTEOPENIA) (T score less than or equal to -2.5 to: OSTEOPOROSIS) Impression: Mild osteopenia within the left femoral neck. Patients with diagnosis of osteoporosis or osteopenia should have regular bone mineral density assess ment. For those eligible for Medicare, routine testing is allowed once every 2 years. Testing frequ ency can be increased for patients who have rapidly progressing disease or for those who are receivin g medical therapy to restore bone mass. Reviewed by: Viola Golden MD on 09/24/2020 2:49 PM PDT Approved by: Vioal Golden MD on 09/24/2020 2:49 PM PDT Station ID: [id number]
== END 2020-09-24 10:37 | disposition home or self-care (01) ==
LOC: DI 10:36
PROVIDERS: ATTEND Physician Assistant Medical
DX: M85.88 Other specified disorders of bone density and structure, other site (principal)

== ENCOUNTER 2020-10-10 07:20 | Outpatient (CLI) | payer MEDICARE ==
[2020-10-10 07:45] LABS: CALCIUM 9.1 mg/dL (8.5-10.3); CREATININE 1.5 mg/dL (0.4-1.0); POTASSIUM 4.2 mmol/L (3.5-5.0)
[2020-10-10 07:48] LABS: HCT - HEMATOCRIT 34.9 % (37.0-47.0); HGB - HEMOGLOBIN 11.7 g/dL (12.0-16.0); MEAN CORPUSCULAR HEMOGLOBIN 31.1 pg (27.0-31.0); MEAN CORPUSCULAR HGB CONC 33.5 g/dL (32.0-36.0); MEAN CORPUSCULAR VOLUME 92.8 fL (81.0-99.0); MEAN PLATELET VOLUME 9.9 fL (7.9-10.8); RED BLOOD COUNT 3.76 10^6/uL (4.20-5.40); WHITE BLOOD COUNT 7.7 x10^3/uL (4.8-10.8)
[2020-10-10 08:38] LABS: CREATININE,URINE 97.5 mg/dL; PROTEIN/CREATININE RATIO,URINE 1.2 (<=0.2)
== END 2020-10-10 07:21 | disposition home or self-care (01) ==
LOC: LAB 07:20
PROVIDERS: ATTEND Internal Medicine Nephrology
DX: N05.9 Unspecified nephritic syndrome with unspecified morphologic changes (principal); D70.9 Neutropenia, unspecified; D63.1 Anemia in chronic kidney disease; R80.9 Proteinuria, unspecified
CPT/HCPCS: 36415; 80048; 82570; 84156; 85027

== ENCOUNTER 2020-12-19 08:00 | Outpatient (CLI) | payer MEDICARE ==
[2020-12-19 11:50] LABS: CALCIUM 9.2 mg/dL (8.5-10.3); CREATININE 1.5 mg/dL (0.4-1.0); POTASSIUM 4.3 mmol/L (3.5-5.0)
[2020-12-19 12:07] LABS: ESTIMATED AVERAGE GLUCOSE 243 mg/dL (70-100); HEMOGLOBIN A1c% 10.1 % (4.27-6.07)
== END 2020-12-19 23:59 | disposition home or self-care (01) ==
LOC: LAB.WCP 08:00
PROVIDERS: ATTEND Physician Assistant Medical
DX: E11.9 Type 2 diabetes mellitus without complications (principal)
CPT/HCPCS: 36415; 80048; 83036

== ENCOUNTER 2021-02-17 07:48 | Outpatient (CLI) | payer MEDICARE ==
[2021-02-17 12:38] LABS: CREATININE 1.5 mg/dL (0.4-1.0); PHOSPHORUS 3.8 mg/dL (2.5-4.6); POTASSIUM 3.9 mmol/L (3.5-5.0)
== END 2021-02-17 23:59 | disposition home or self-care (01) ==
LOC: LAB.WCP 07:48
PROVIDERS: ATTEND Internal Medicine Nephrology
DX: N05.9 Unspecified nephritic syndrome with unspecified morphologic changes (principal); I50.32 Chronic diastolic (congestive) heart failure; E83.30 Disorder of phosphorus metabolism, unspecified
CPT/HCPCS: 36415; 80048; 83880; 83970; 84100

== ENCOUNTER 2021-03-18 07:51 | Outpatient (CLI) | payer MEDICARE ==
[2021-03-18 12:07] LABS: ALBUMIN/GLOBULIN RATIO 1.3 (1.0-2.2); ALKALINE PHOSPHATASE 90 IU/L (42-121); ALT ALANINE AMINOTRANSFERASE 28 IU/L (10-60); AST ASPARTATE AMINOTRANSFERASE 28 IU/L (10-42); BILIRUBIN,TOTAL 0.5 mg/dL (0.2-1.0); BUN - BLOOD UREA NITROGEN 33 mg/dL (6-20); CALCIUM 9.5 mg/dL (8.5-10.3); CARBON DIOXIDE - CO2 27 mmol/L (21-32); CHLORIDE 106 mmol/L (101-111); CHOL/HDL RATIO 3.4 (<4.4); CHOLESTEROL 136 mg/dL; CREATININE 1.5 mg/dL (0.4-1.0); GFR - MDRD 35 (>89); GLUCOSE 202 mg/dL (70-100); HDL CHOLESTEROL 40 mg/dL; LDL CHOLESTEROL,CALCULATED 67 mg/dL; LDL/HDL RATIO 1.7 (<4.4); POTASSIUM 4.4 mmol/L (3.5-5.0); SODIUM 141 mmol/L (135-145); TOTAL PROTEIN 7.1 g/dL (6.7-8.2); TRIGLYCERIDES 146 mg/dL; VLDL CHOLESTEROL 29 mg/dL
[2021-03-18 12:13] LABS: ESTIMATED AVERAGE GLUCOSE 252 mg/dL (70-100); HEMOGLOBIN A1c% 10.4 % (4.27-6.07)
== END 2021-03-18 23:59 | disposition home or self-care (01) ==
LOC: LAB.WCP 07:51
PROVIDERS: ATTEND Physician Assistant Medical
DX: E11.9 Type 2 diabetes mellitus without complications (principal)
CPT/HCPCS: 36415; 80053; 80061; 83036; 83721

== ENCOUNTER 2021-07-10 08:00 | Outpatient (CLI) | payer MEDICARE ==
[2021-07-10 14:09] LABS: CALCIUM 9.2 mg/dL (8.5-10.3); CREATININE 1.4 mg/dL (0.4-1.0); POTASSIUM 4.1 mmol/L (3.5-5.0)
[2021-07-10 14:18] LABS: ESTIMATED AVERAGE GLUCOSE 240 mg/dL (70-100)
[2021-07-10 15:05] LABS: CREATININE,URINE 136.2 mg/dL; MICROALBUM/CREATININE RATIO,UR 1290.7 ug/mg (<30.0); MICROALBUMIN,URINE 175.8 mg/dL (0-300.0)
== END 2021-07-10 23:59 | disposition home or self-care (01) ==
LOC: LAB.WCP 08:00
PROVIDERS: ATTEND Physician Assistant Medical
DX: E11.9 Type 2 diabetes mellitus without complications (principal)
CPT/HCPCS: 36415; 80048; 82043; 82570; 83036

== ENCOUNTER 2021-10-19 07:03 | Outpatient (CLI) | payer MEDICARE ==
[2021-10-19 12:41] LABS: ALBUMIN 3.8 g/dL (3.2-5.5); ALBUMIN/GLOBULIN RATIO 1.2 (1.0-2.2); ALKALINE PHOSPHATASE 83 IU/L (42-121); ALT ALANINE AMINOTRANSFERASE 33 IU/L (10-60); AST ASPARTATE AMINOTRANSFERASE 27 IU/L (10-42); BILIRUBIN,TOTAL 0.6 mg/dL (0.2-1.0); BUN - BLOOD UREA NITROGEN 34 mg/dL (6-20); CALCIUM 9.2 mg/dL (8.5-10.3); CARBON DIOXIDE - CO2 27 mmol/L (21-32); CHLORIDE 107 mmol/L (101-111); CHOL/HDL RATIO 3.5 (<4.4); CHOLESTEROL 132 mg/dL; CREATININE 1.7 mg/dL (0.4-1.0); GFR - MDRD 30 (>89); GLUCOSE 84 mg/dL (70-100); HDL CHOLESTEROL 38 mg/dL; LDL CHOLESTEROL,CALCULATED 55 mg/dL; LDL/HDL RATIO 1.4 (<4.4); SODIUM 142 mmol/L (135-145); TOTAL PROTEIN 7.1 g/dL (6.7-8.2); TRIGLYCERIDES 195 mg/dL; VLDL CHOLESTEROL 39 mg/dL
[2021-10-19 13:51] LABS: ESTIMATED AVERAGE GLUCOSE 252 mg/dL (70-100); HEMOGLOBIN A1c% 10.4 % (4.27-6.07)
== END 2021-10-19 07:04 | disposition home or self-care (01) ==
LOC: LAB.N 07:03
PROVIDERS: ATTEND Physician Assistant Medical
DX: E11.9 Type 2 diabetes mellitus without complications (principal)
CPT/HCPCS: 36415; 80053; 80061; 83036; 83721

== ENCOUNTER 2021-12-16 07:13 | Outpatient (CLI) | payer MEDICARE ==
[2021-12-16 12:36] LABS: CALCIUM 9.1 mg/dL (8.5-10.3); CREATININE 1.6 mg/dL (0.4-1.0); POTASSIUM 4.2 mmol/L (3.5-5.0)
[2021-12-16 12:37] LABS: ESTIMATED AVERAGE GLUCOSE 237 mg/dL (70-100); HEMOGLOBIN A1c% 9.9 % (4.27-6.07)
== END 2021-12-16 07:14 | disposition home or self-care (01) ==
LOC: LAB.N 07:13
PROVIDERS: ATTEND Physician Assistant Medical
DX: E11.9 Type 2 diabetes mellitus without complications (principal)
CPT/HCPCS: 36415; 80048; 83036

== ENCOUNTER 2022-04-30 07:42 | Outpatient (CLI) | payer MEDICARE ==
[2022-04-30 12:54] LABS: ALBUMIN 4.2 g/dL (3.2-5.5); ALBUMIN/GLOBULIN RATIO 1.3 (1.0-2.2); ALKALINE PHOSPHATASE 106 IU/L (42-121); ALT ALANINE AMINOTRANSFERASE 38 IU/L (10-60); AST ASPARTATE AMINOTRANSFERASE 29 IU/L (10-42); BILIRUBIN,TOTAL 0.8 mg/dL (0.2-1.0); BUN - BLOOD UREA NITROGEN 25 mg/dL (6-20); CALCIUM 9.8 mg/dL (8.5-10.3); CARBON DIOXIDE - CO2 28 mmol/L (21-32); CHLORIDE 105 mmol/L (101-111); CHOL/HDL RATIO 3.9 (<4.4); CHOLESTEROL 168 mg/dL; CREATININE 1.7 mg/dL (0.4-1.0); GFR - MDRD 30 (>89); GLUCOSE 183 mg/dL (70-100); HDL CHOLESTEROL 43 mg/dL; LDL CHOLESTEROL,CALCULATED 86 mg/dL; POTASSIUM 4.3 mmol/L (3.5-5.0); SODIUM 140 mmol/L (135-145); TOTAL PROTEIN 7.5 g/dL (6.7-8.2); TRIGLYCERIDES 194 mg/dL; VLDL CHOLESTEROL 39 mg/dL
[2022-04-30 13:02] LABS: ESTIMATED AVERAGE GLUCOSE 252 mg/dL (70-100); HEMOGLOBIN A1c% 10.4 % (4.27-6.07)
== END 2022-04-30 07:43 | disposition home or self-care (01) ==
LOC: LAB.N 07:42
PROVIDERS: ATTEND Physician Assistant Medical
DX: E11.9 Type 2 diabetes mellitus without complications (principal); E78.5 Hyperlipidemia, unspecified
CPT/HCPCS: 36415; 80053; 80061; 83036; 83721

== ENCOUNTER 2022-07-15 08:00 | Outpatient (CLI) | payer MEDICARE | END 2022-07-15 23:59 | disposition home or self-care (01) | LOC: LAB.N 08:00 | PROVIDERS: ATTEND Registered Nurse | DX: R30.0 Dysuria (principal) | CPT/HCPCS: 87086; 87181 ==

== ENCOUNTER 2022-07-17 23:42 | Outpatient (CLI) | payer MEDICARE | END 2022-07-17 23:43 | disposition critical access hospital (66) | LOC: EMS 23:42 | DX: R11.2 Nausea with vomiting, unspecified (principal) | CPT/HCPCS: A0425; A0429 ==

== ENCOUNTER 2022-07-17 23:59 | Emergency (ER) | payer MEDICARE ==
[2022-07-18 00:23] LABS: BASOPHILS # (AUTO) 0.1 10^3/uL (0.0-0.1); BASOPHILS % (AUTO) 0.5 %; EOSINOPHILS # (AUTO) 0.1 10^3/uL (0.0-0.7); EOSINOPHILS % (AUTO) 0.8 %; HCT - HEMATOCRIT 30.7 % (37.0-47.0); HGB - HEMOGLOBIN 10.2 g/dL (12.0-16.0); LYMPHOCYTES # (AUTO) 1.4 10^3/uL (1.5-3.5); LYMPHOCYTES % (AUTO) 13.2 %; MEAN CORPUSCULAR HEMOGLOBIN 30.1 pg (27.0-31.0); MEAN CORPUSCULAR HGB CONC 33.2 g/dL (32.0-36.0); MEAN CORPUSCULAR VOLUME 90.6 fL (81.0-99.0); MEAN PLATELET VOLUME 9.5 fL (7.9-10.8); MONOCYTES # (AUTO) 0.6 10^3/uL (0.0-1.0); MONOCYTES % (AUTO) 5.8 %; NEUTROPHILS # (AUTO) 8.2 10^3/uL (1.5-6.6); NEUTROPHILS % (AUTO) 79.2 %; PLT - PLATELET COUNT 229 10^3/uL (130-450); RED BLOOD COUNT 3.39 10^6/uL (4.20-5.40); RED CELL DISTRIBUTION WIDTH 11.8 % (12.0-15.0); WHITE BLOOD COUNT 10.4 x10^3/uL (4.8-10.8)
[2022-07-18 00:36] LABS: ALBUMIN/GLOBULIN RATIO 1.2 (1.0-2.2); BILIRUBIN,TOTAL 0.6 mg/dL (0.2-1.0); CALCIUM 8.4 mg/dL (8.5-10.3); CREATININE 2.6 mg/dL (0.4-1.0); POTASSIUM 3.7 mmol/L (3.5-5.0); TOTAL PROTEIN 7.3 g/dL (6.7-8.2)
--- NOTE | 2022-07-18 01:00 | ED Physician Documentation ---
PD HPI NVD - Stated complaint Stated Complaint: N/V - Chief complaint Chief Complaint: Abd Pain - History obtained from History obtained from: Patient - History of Present Illness Timing - onset: Enter time (22:30), Today Timing - details: Abrupt onset Pain level now: 0 Recently seen: Clinic - Additonal information Additional information: ALEXANDRA. Patient c/o nausea, vomiting starting approximately 22:30 tonight. She was given 4mg IV zofran by EMS and n/v resolved by the time of ED arrival. Patient recently diagnosed with UTI in outpatient clinic, was prescribed bactrim. Earlier today, she was called and told the antibiotic needed to be changed based on culture result, and a new antibiotic was sent to her pharmacy. She has not had the chance to lemon picker the rx yet, but plans to in the morning. She denies abdominal pain, fever. PD PAST MEDICAL HISTORY - Past Medical History Cardiovascular: Hypertension Endocrine/Autoimmune: Type 2 diabetes Musculoskeletal: Osteoarthritis - Past Surgical History General: Colonoscopy - Present Medications Home Medications: Ambulatory Orders Medication Instructions Recorded Confirmed Cholecalciferol (Vitamin D3) 2,000 unit PO DAILY 12/13/14 01/25/17 [Vitamin D-3] Insulin NPH Human Isophane 12 unit SQ QPM 12/13/14 01/25/17 [Humulin N] Losartan [Cozaar] 50 mg PO DAILY 12/13/14 01/25/17 Insulin Regular, Human [Humulin R] 4 - 8 unit IJ BIDWM 01/23/15 01/25/17 Lidocaine Patch 5% [Lidoderm Patch] 1 each TOP DAILY PRN #10 patch 01/25/17 methIMAzole [Methimazole] 5 mg PO DAILY 01/25/17 01/25/17 Ondansetron Odt [Zofran] 4 mg TL Q6H PRN #10 tablet 07/18/22 - Allergies Allergies/Adverse Reactions: Allergies Allergy/AdvReac Type Severity Reaction Status Date / Time chicken derived AdvReac Mild Rash Verified 07/18/22 00:03 acetaminophen [From Vicodin] AdvReac Rash Verified 07/18/22 00:03 hydrocodone bitartrate * AdvReac Rash Verified 07/18/22 00:03 [From Vicodin] - Social History Does the pt smoke?: No Smoking Status: Never smoker PD ED PE NORMAL - Vitals Vital signs reviewed: Yes - General General: Alert and oriented X 3, No acute distress, Well developed/nourished - HEENT HEENT: Moist mucous membranes - Cardiac Cardiac: RRR, No murmur - Respiratory Respiratory: No respiratory distress, Clear bilaterally - Abdomen Abdomen: Soft, Non tender - Back Back: No CVA TTP Results - Vitals Vitals: Oxygen O2 Source Room air - Labs Labs: Laboratory Tests 07/18/22 07/18/22 07/18/22 00:19 00:19 01:24 WBC 10.4 RBC 3.39 L Hgb 10.2 L Hct 30.7 L MCV 90.6 MCH 30.1 MCHC 33.2 RDW 11.8 L Plt Count 229 MPV 9.5 Neut # (Auto) 8.2 H Lymph # (Auto) 1.[address] [place] # (Auto) 0.6 Eos # (Auto) 0.1 Baso # (Auto) 0.1 Absolute Nucleated RBC 0.00 Nucleated RBC % 0.0 Sodium 135 Potassium 3.7 Chloride 100 L Carbon Dioxide 25 Anion Gap 10.0 BUN 44 H Creatinine 2.6 H Estimated GFR (MDRD) 18 L Glucose 122 H Calcium 8.4 L Total Bilirubin 0.6 AST 25 ALT 20 Alkaline Phosphatase 84 Total Protein 7.3 Albumin 4.0 Globulin 3.3 Albumin/Globulin Ratio 1.2 Lipase 73 H Urine Color YELLOW Urine Clarity CLEAR Urine pH 7.0 Ur Specific [place] 1.015 Urine Protein 100 H Urine Glucose (UA) NEGATIVE Urine Ketones NEGATIVE Urine Occult Blood TRACE-INTA Urine Nitrite NEGATIVE Urine Bilirubin NEGATIVE Urine Urobilinogen 0.2 (NORMAL) Ur Leukocyte Esterase NEGATIVE Urine RBC 0-5 Urine WBC 0-3 Ur Squamous Epith Cells RARE Squamous Urine Bacteria Rare Urine Mucus Few Strands Ur Microscopic Review INDICATED Urine Culture Comments NOT INDICATED PD Medical Decision Making - ED course Complexity details: reviewed old records, reviewed results, re-evaluated patient, considered differential, d/w patient ED course: patient's chief complaint is nausea, vomiting starting earlier tonight, resolved with 4mg IV zofran given by EMS en route. Tests ordered, results reviewed by me: CBC, ER abdominal panel, UA. CBC shows mild anemia, with hgb 10.2 (improved from 11.7, which is most recent result on [facility] from 2020). BUN 44 and creatinine 2.6; this represents a higher creatinine than her baseline (most previous results have been elevated but not above 2.0 on records in [facility]); for this she is given 1 liter NS IV. Dehydration could potentially be playing a role, given that she had several episodes emesis earlier tonight. Her UA is unremarkable tonight. However, I am able to access previous result of urine culture from the outpatient testing performed a couple of days ago; that urine culture grew ESBL e. coli; sensitive to macrobid but not bactrim. I also see in [facility] that she has an rx for nitrofurantoin waiting to be picked up at [facility]. Results d/w patient. I advised her to stop taking the bactrim and she is given a dose of macrobid now; I explained that this is the same antibiotic waiting to be picked up in the morning. I also e-prescribed ondansetron to the same pharmacy for her to lemon picker later should she have more nausea/vomiting. Cause of her n/v is not apparent at this time. I advised her to follow up with her primary care provider, particularly for her elevated kidney tests (she indicates she has an upcoming appointment with her special shopper) Departure - Departure Disposition: Home, Self Care Clinical Impression: Vomiting Qualifiers: Vomiting type: unspecified Nausea presence: with nausea Qualified Code(s): R11.2 - Nausea with vomiting, unspecified Abdominal pain Qualifiers: Abdominal location: epigastric Qualified Code(s): R10.13 - Epigastric pain Condition: Good Instructions: ED Abdominal Pain Female Non-Specific Abdominal Pain, ED Nausea Vomiting Prescriptions: Ondansetron Odt [Zofran] 4 mg TL Q6H PRN #10 tablet PRN Reason: Nausea / Vomiting Comments: There were no concerning findings on darvin's tests. As we discussed, your kidney function tests are little bit worse than your previous results, but not to an alarming extent and this can be followed up by your kidney doctor (Dr. Montgomery). Your red blood cell level was slightly below the normal range, But he does not nearly low enough to cause symptoms nor require any treatment such as transfusions. Darvin's urinalysis did not show any obvious evidence of infection, but, as we discussed, the urine culture you had just a few days ago was positive for a bacterial urinary tract infection caused by E. coli; the culture results also show that this particular infection is resistant to most of the oral antibiotics including the sulfa antibiotic that was prescribed a few days ago. I would recommend he stop taking the sulfa antibiotic. Your primary care provider has prescribed a new antibiotic (Nitrofurantoin) which is waiting to be picked up at the [facility] pharmacy. You have been given the first dose of the antibiotic in the emergency department. It is important that you lemon picker t he prescription waiting for you at the [facility] pharmacy for this new antibiotic later this morning and take it as prescribed. I have also sent a prescription to the [facility] pharmacy for the antinausea medication that you are given tonight. The cause of your symptoms (nausea, vomiting, and abdominal pain) is not apparent at this time, but given that you are improved and the blood tests do not suggest a specific more concerning cause, it is safe to send you home at this time. Certainly, you should return to the emergency department if your symptoms worsen in any way if you develop new/concerning signs/symptoms such as fever Discharge Date/Time: 07/18/22 03:29
[2022-07-18] MEDS ORDERED: SODIUM CHLORIDE 0.9% 1,000 ML IV STA (01:22)
[2022-07-18 01:32] LABS: BILIRUBIN,URINE NEGATIVE (NEGATIVE); GLUCOSE, URINE (UA) NEGATIVE (NEGATIVE); KETONES,URINE (UA) NEGATIVE (NEGATIVE); LEUKOCYTE ESTERASE, URINE NEGATIVE (NEGATIVE); NITRITE,URINE NEGATIVE (NEGATIVE); OCCULT BLOOD,URINE TRACE-INTA (NEGATIVE); PROTEIN,URINE 100 mg/dL (NEGATIVE); UROBILINOGEN,URINE 0.2 (NORMAL) E.U./dL (NORMAL)
[2022-07-18 01:33] LABS: CLARITY,URINE CLEAR (CLEAR)
[2022-07-18 01:39] LABS: RBC,URINE 0-5 /HPF (0-5); WBC,URINE 0-3 /HPF (0-5)
[2022-07-18 01:40] LABS: BACTERIA,URINE Rare /HPF (None Seen); MUCUS,URINE Few Strands; SQUAMOUS EPITHELIAL CELL,UR RARE Squamous (<= Few)
[2022-07-18] MEDS ORDERED: NITROFURANTOIN MACRO 100 MG CAPSULE PO STA (02:53)
[2022-07-18 03:24] VITALS: BP 149/67
== END 2022-07-18 03:29 | disposition home or self-care (01) ==
LOC: EDUNIT# → ED 23:59
DX: R11.2 Nausea with vomiting, unspecified (principal); R10.13 Epigastric pain; E11.9 Type 2 diabetes mellitus without complications; Z79.4 Long term (current) use of insulin
CPT/HCPCS: 36415; 80053; 81001; 83690; 85025; 96360; 99283; 99284; A9270; 81003; 87086

== ENCOUNTER 2022-07-30 07:11 | Outpatient (CLI) | payer MEDICARE ==
[2022-07-30 12:05] LABS: ALBUMIN/GLOBULIN RATIO 1.1 (1.0-2.2); BILIRUBIN,TOTAL 0.6 mg/dL (0.2-1.0); CALCIUM 9.6 mg/dL (8.5-10.3); CREATININE 1.9 mg/dL (0.4-1.0); POTASSIUM 4.4 mmol/L (3.5-5.0); TOTAL PROTEIN 7.6 g/dL (6.7-8.2)
[2022-07-30 12:17] LABS: ESTIMATED AVERAGE GLUCOSE 220 mg/dL (70-100); HEMOGLOBIN A1c% 9.3 % (4.27-6.07)
== END 2022-07-30 07:12 | disposition home or self-care (01) ==
LOC: LAB.N 07:11
PROVIDERS: ATTEND Registered Nurse
DX: E11.9 Type 2 diabetes mellitus without complications (principal); R30.0 Dysuria
CPT/HCPCS: 36415; 80053; 83036; 87086

== ENCOUNTER 2022-09-01 09:07 | Outpatient (CLI) | payer MEDICARE ==
[2022-09-01 12:02] LABS: BASOPHILS # (AUTO) 0.1 10^3/uL (0.0-0.1); BASOPHILS % (AUTO) 1.2 %; EOSINOPHILS # (AUTO) 0.2 10^3/uL (0.0-0.7); HCT - HEMATOCRIT 32.9 % (37.0-47.0); LYMPHOCYTES # (AUTO) 1.8 10^3/uL (1.5-3.5); LYMPHOCYTES % (AUTO) 31.2 %; MEAN CORPUSCULAR HEMOGLOBIN 30.9 pg (27.0-31.0); MEAN CORPUSCULAR HGB CONC 33.4 g/dL (32.0-36.0); MEAN CORPUSCULAR VOLUME 92.4 fL (81.0-99.0); MEAN PLATELET VOLUME 10.5 fL (7.9-10.8); MONOCYTES # (AUTO) 0.5 10^3/uL (0.0-1.0); MONOCYTES % (AUTO) 8.5 %; NEUTROPHILS # (AUTO) 3.2 10^3/uL (1.5-6.6); NEUTROPHILS % (AUTO) 55.9 %; PLT - PLATELET COUNT 230 10^3/uL (130-450); RED BLOOD COUNT 3.56 10^6/uL (4.20-5.40); RED CELL DISTRIBUTION WIDTH 12.3 % (12.0-15.0); WHITE BLOOD COUNT 5.6 x10^3/uL (4.8-10.8)
[2022-09-01 12:21] LABS: CALCIUM 9.2 mg/dL (8.5-10.3); CREATININE 1.6 mg/dL (0.4-1.0); PHOSPHORUS 3.2 mg/dL (2.5-4.6); POTASSIUM 4.4 mmol/L (3.5-5.0)
[2022-09-01 13:00] LABS: CREATININE,URINE 172.4 mg/dL; PROTEIN/CREATININE RATIO,URINE 1.2 (<=0.2)
== END 2022-09-01 09:08 | disposition home or self-care (01) ==
LOC: LAB.N 09:07
PROVIDERS: ATTEND Physician Assistant Medical
DX: N05.9 Unspecified nephritic syndrome with unspecified morphologic changes (principal); N25.81 Secondary hyperparathyroidism of renal origin; R80.9 Proteinuria, unspecified; D70.9 Neutropenia, unspecified; D63.1 Anemia in chronic kidney disease
CPT/HCPCS: 36415; 80048; 82570; 83970; 84100; 84156; 85025

== ENCOUNTER 2022-11-09 07:30 | Outpatient (CLI) | payer MEDICARE ==
[2022-11-09 12:23] LABS: ALBUMIN/GLOBULIN RATIO 1.2 (1.0-2.2); ALKALINE PHOSPHATASE 89 IU/L (42-121); ALT ALANINE AMINOTRANSFERASE 27 IU/L (10-60); AST ASPARTATE AMINOTRANSFERASE 26 IU/L (10-42); BILIRUBIN,TOTAL 0.6 mg/dL (0.2-1.0); BUN - BLOOD UREA NITROGEN 29 mg/dL (6-20); CARBON DIOXIDE - CO2 26 mmol/L (21-32); CHLORIDE 108 mmol/L (101-111); CHOL/HDL RATIO 3.2 (<4.4); CHOLESTEROL 137 mg/dL; CREATININE 1.8 mg/dL (0.4-1.0); GFR - MDRD 28 (>89); GLUCOSE 196 mg/dL (70-100); HDL CHOLESTEROL 43 mg/dL; LDL CHOLESTEROL,CALCULATED 51 mg/dL; LDL/HDL RATIO 1.2 (<4.4); POTASSIUM 4.3 mmol/L (3.5-5.0); SODIUM 138 mmol/L (135-145); TOTAL PROTEIN 7.4 g/dL (6.7-8.2); TRIGLYCERIDES 215 mg/dL; VLDL CHOLESTEROL 43 mg/dL
[2022-11-09 12:26] LABS: THYROID STIMULATING HORMONE 2.38 uIU/mL (0.34-5.60)
[2022-11-10 15:26] LABS: ESTIMATED AVERAGE GLUCOSE 217 mg/dL (70-100); HEMOGLOBIN A1c% 9.2 % (4.27-6.07)
== END 2022-11-09 07:31 | disposition home or self-care (01) ==
LOC: LAB.N 07:30
PROVIDERS: ATTEND Physician Assistant Medical
DX: E05.90 Thyrotoxicosis, unspecified without thyrotoxic crisis or storm (principal); E11.9 Type 2 diabetes mellitus without complications
CPT/HCPCS: 36415; 80053; 80061; 83036; 83721; 84443

== ENCOUNTER 2023-02-09 07:28 | Outpatient (CLI) | payer MEDICARE ==
[2023-02-09 12:42] LABS: ALBUMIN 3.9 g/dL (3.2-5.5); ALBUMIN/GLOBULIN RATIO 1.3 (1.0-2.2); ALKALINE PHOSPHATASE 83 IU/L (42-121); ALT ALANINE AMINOTRANSFERASE 25 IU/L (10-60); AST ASPARTATE AMINOTRANSFERASE 26 IU/L (10-42); BILIRUBIN,TOTAL 0.6 mg/dL (0.2-1.0); BUN - BLOOD UREA NITROGEN 31 mg/dL (6-20); CALCIUM 9.2 mg/dL (8.5-10.3); CARBON DIOXIDE - CO2 25 mmol/L (21-32); CHLORIDE 113 mmol/L (101-111); CHOL/HDL RATIO 3.5 (<4.4); CHOLESTEROL 125 mg/dL; CREATININE 1.9 mg/dL (0.4-1.0); GFR - MDRD 26 (>89); GLUCOSE 150 mg/dL (70-100); HDL CHOLESTEROL 36 mg/dL; LDL CHOLESTEROL,CALCULATED 48 mg/dL; LDL/HDL RATIO 1.3 (<4.4); POTASSIUM 4.4 mmol/L (3.5-5.0); SODIUM 141 mmol/L (135-145); TOTAL PROTEIN 6.8 g/dL (6.7-8.2); TRIGLYCERIDES 204 mg/dL; VLDL CHOLESTEROL 41 mg/dL
[2023-02-09 14:01] LABS: ESTIMATED AVERAGE GLUCOSE 240 mg/dL (70-100)
== END 2023-02-09 07:29 | disposition home or self-care (01) ==
LOC: LAB.N 07:28
PROVIDERS: ATTEND Physician Assistant Medical
DX: E11.9 Type 2 diabetes mellitus without complications (principal)
CPT/HCPCS: 36415; 80053; 80061; 83036; 83721

== ENCOUNTER 2023-05-12 07:05 | Outpatient (CLI) | payer MEDICARE ==
[2023-05-12 12:12] LABS: CALCIUM 9.5 mg/dL (8.5-10.3); CREATININE 1.8 mg/dL (0.6-1.3); POTASSIUM 4.2 mmol/L (3.5-4.5)
[2023-05-12 12:32] LABS: ESTIMATED AVERAGE GLUCOSE 214 mg/dL (70-100); HEMOGLOBIN A1c% 9.1 % (4.27-6.07)
== END 2023-05-12 07:06 | disposition home or self-care (01) ==
LOC: LAB.N 07:05
PROVIDERS: ATTEND Physician Assistant Medical
DX: E11.9 Type 2 diabetes mellitus without complications (principal)
CPT/HCPCS: 36415; 80048; 83036

== ENCOUNTER 2023-08-15 08:55 | Outpatient (CLI) | payer MEDICARE ==
[2023-08-15 13:06] LABS: ALBUMIN 4.1 g/dL (3.2-5.5); ALBUMIN/GLOBULIN RATIO 1.4 (1.0-2.2); ALKALINE PHOSPHATASE 88 IU/L (42-121); ALT ALANINE AMINOTRANSFERASE 21 IU/L (10-60); AST ASPARTATE AMINOTRANSFERASE 18 IU/L (10-42); BILIRUBIN,TOTAL 0.5 mg/dL (0.2-1.0); BUN - BLOOD UREA NITROGEN 28 mg/dL (6-20); CALCIUM 9.4 mg/dL (8.5-10.3); CARBON DIOXIDE - CO2 27 mmol/L (21-32); CHLORIDE 106 mmol/L (101-111); CHOL/HDL RATIO 2.8 (<4.4); CHOLESTEROL 111 mg/dL; CREATININE 2.1 mg/dL (0.6-1.3); GFR - MDRD 23 (>89); GLUCOSE 218 mg/dL (74-104); HDL CHOLESTEROL 39 mg/dL; LDL CHOLESTEROL,CALCULATED 28 mg/dL; LDL/HDL RATIO 0.7 (<4.4); POTASSIUM 4.2 mmol/L (3.5-4.5); SODIUM 139 mmol/L (135-145); TRIGLYCERIDES 218 mg/dL (48-352); VLDL CHOLESTEROL 44 mg/dL
[2023-08-15 13:27] LABS: ESTIMATED AVERAGE GLUCOSE 237 mg/dL (70-100); HEMOGLOBIN A1c% 9.9 % (4.27-6.07)
== END 2023-08-15 08:56 | disposition home or self-care (01) ==
LOC: LAB.N 08:55
PROVIDERS: ATTEND Physician Assistant Medical
DX: E11.9 Type 2 diabetes mellitus without complications (principal)
CPT/HCPCS: 36415; 80053; 80061; 83036; 83721

== ENCOUNTER 2023-10-08 09:37 | Outpatient (CLI) | payer MEDICARE ==
[2023-10-08 18:51] LABS: BASOPHILS # (AUTO) 0.1 10^3/uL (0.0-0.1); BASOPHILS % (AUTO) 1.5 %; EOSINOPHILS # (AUTO) 0.4 10^3/uL (0.0-0.7); EOSINOPHILS % (AUTO) 5.9 %; HCT - HEMATOCRIT 33.4 % (37.0-47.0); HGB - HEMOGLOBIN 10.6 g/dL (12.0-16.0); LYMPHOCYTES # (AUTO) 1.5 10^3/uL (1.5-3.5); LYMPHOCYTES % (AUTO) 25.4 %; MEAN CORPUSCULAR HEMOGLOBIN 30.3 pg (27.0-31.0); MEAN CORPUSCULAR HGB CONC 31.7 g/dL (32.0-36.0); MEAN CORPUSCULAR VOLUME 95.4 fL (81.0-99.0); MEAN PLATELET VOLUME 10.2 fL (7.9-10.8); MONOCYTES # (AUTO) 0.5 10^3/uL (0.0-1.0); MONOCYTES % (AUTO) 8.6 %; NEUTROPHILS # (AUTO) 3.5 10^3/uL (1.5-6.6); NEUTROPHILS % (AUTO) 58.3 %; PLT - PLATELET COUNT 253 10^3/uL (130-450); RED CELL DISTRIBUTION WIDTH 12.3 % (12.0-15.0); WHITE BLOOD COUNT 6.1 x10^3/uL (4.8-10.8)
[2023-10-08 19:01] LABS: CREATININE,URINE 113.8 mg/dL
[2023-10-08 19:12] LABS: PROTEIN/CREATININE RATIO,URINE 2.4 (<=0.2)
[2023-10-08 19:15] LABS: CALCIUM 9.7 mg/dL (8.5-10.3); CREATININE 2.2 mg/dL (0.6-1.3); POTASSIUM 4.4 mmol/L (3.5-4.5)
== END 2023-10-08 09:38 | disposition home or self-care (01) ==
LOC: LAB.N 09:37
PROVIDERS: ATTEND Internal Medicine Nephrology
DX: N05.9 Unspecified nephritic syndrome with unspecified morphologic changes (principal); N25.81 Secondary hyperparathyroidism of renal origin; E83.30 Disorder of phosphorus metabolism, unspecified; R80.9 Proteinuria, unspecified; D70.9 Neutropenia, unspecified
CPT/HCPCS: 36415; 80048; 82570; 83970; 84100; 84156; 85025; 85027

== ENCOUNTER 2023-11-10 07:37 | Outpatient (CLI) | payer MEDICARE ==
[2023-11-10 12:10] LABS: BASOPHILS # (AUTO) 0.1 10^3/uL (0.0-0.1); BASOPHILS % (AUTO) 1.7 %; EOSINOPHILS # (AUTO) 0.4 10^3/uL (0.0-0.7); EOSINOPHILS % (AUTO) 6.5 %; HCT - HEMATOCRIT 32.4 % (37.0-47.0); HGB - HEMOGLOBIN 10.4 g/dL (12.0-16.0); LYMPHOCYTES # (AUTO) 1.6 10^3/uL (1.5-3.5); LYMPHOCYTES % (AUTO) 27.7 %; MEAN CORPUSCULAR HGB CONC 32.1 g/dL (32.0-36.0); MEAN CORPUSCULAR VOLUME 93.4 fL (81.0-99.0); MEAN PLATELET VOLUME 10.4 fL (7.9-10.8); MONOCYTES # (AUTO) 0.6 10^3/uL (0.0-1.0); NEUTROPHILS # (AUTO) 3.1 10^3/uL (1.5-6.6); NEUTROPHILS % (AUTO) 53.9 %; PLT - PLATELET COUNT 268 10^3/uL (130-450); RED BLOOD COUNT 3.47 10^6/uL (4.20-5.40); RED CELL DISTRIBUTION WIDTH 12.2 % (12.0-15.0); WHITE BLOOD COUNT 5.8 x10^3/uL (4.8-10.8)
[2023-11-10 12:24] LABS: CALCIUM 9.5 mg/dL (8.5-10.3); CREATININE 2.1 mg/dL (0.6-1.3); POTASSIUM 4.2 mmol/L (3.5-4.5)
[2023-11-10 12:28] LABS: ESTIMATED AVERAGE GLUCOSE 229 mg/dL (70-100); HEMOGLOBIN A1c% 9.6 % (4.27-6.07)
[2023-11-10 12:34] LABS: THYROID STIMULATING HORMONE 1.36 uIU/mL (0.34-5.60)
== END 2023-11-10 07:38 | disposition home or self-care (01) ==
LOC: LAB.N 07:37
PROVIDERS: ATTEND Physician Assistant Medical
DX: N18.9 Chronic kidney disease, unspecified (principal); E05.90 Thyrotoxicosis, unspecified without thyrotoxic crisis or storm; D64.9 Anemia, unspecified
CPT/HCPCS: 36415; 80048; 83036; 84443; 85025

== ENCOUNTER 2024-01-31 10:38 | Outpatient (CLI) | payer MEDICARE ==
--- NOTE | 2024-01-31 15:10 | Ultrasound Report ---
PROCEDURE: Soft Tissue Head or Neck INDICATIONS: GOITER TECHNIQUE: Real-time scanning was performed of the thyroid gland, with image documentation. COMPARISON: 06/15/2019 FINDINGS: Right: Thyroid lobe measures 7.8 x 4.8 x 6.1 cm. Left: Thyroid lobe measures 7.8 x 4.2 x 4.0 cm Isthmus: 0.9 cm thick. Echotexture: Heterogeneous. Nodule number: One Location: Right inferior pole Size: 4.2 x 3.2 x 4.7, previously 3.1 x 2.4 x 3.1 cm, increased in size Composition: Solid (2 points). Echogenicity: Isoechoic (1 point). Shape: wider than tall (0 points). Margins: Smooth (0 points). Echogenic foci: None (0 points). Total points: 3 ACR TI-RADS category: TI-RADS 3: Mildly suspicious. Nodule number: Two Location: Isthmus Size: 2.7 x 2.3 x 2.1 cm, previously 1.8 x 1.4 x 1.4 cm. Increased in size Composition: Spongiform (0 points). Echogenicity: Isoechoic (1 point). Shape: wider than tall (0 points). Margins: Smooth (0 points). Echogenic foci: None (0 points). Total points: 1 ACR TI-RADS category: TI-RADS 2: Not suspicious. Nodule number: Three Location: Left inferior pole Size: 3.4 x 2.1 x 2.4 cm, previously 2.5 x 1.5 x 1.5 cm. Increased in size. Composition: Solid (2 points). Echogenicity: Hyperechoic (1 point). Shape: wider than tall (0 points). Margins: Smooth (0 points). Echogenic foci: None (0 points). Total points: 3 ACR TI-RADS category: TI-RADS 3: Mildly suspicious. IMPRESSION: 3 thyroid nodules, with interval increase in size. ACR TI-RADS definitions and recommendations: TI-RADS 1 (benign): 0 points. FNA not needed. TI-RADS 2 (not suspicious): 2 points. FNA not needed. TI-RADS 3 (mildly suspicious): 3 points. "FNA if 2.5 cm or larger, follow up if 1.5 cm or larger (at 1, 3, and 5 years). TI-RADS 4 (moderately suspicious): 4-6 points. "FNA if 1.5 cm or larger, follow up if 1 cm or larger (at 1, 2, 3, and 5 years). TI-RADS 5 (highly suspicious): 7 points or more. "FNA if 1 cm or larger, follow up if 0.5 cm or larger (every year for 5 years). Reviewed by: Kelly Huang MD on 01/31/2024 3:09 PM PDT Approved by: Kelly Huang MD on 01/31/2024 3:09 PM PDT Station ID: [id number]
== END 2024-01-31 10:39 | disposition home or self-care (01) ==
LOC: DI 10:38
PROVIDERS: ATTEND Physician Assistant Medical
DX: E04.2 Nontoxic multinodular goiter (principal)

== ENCOUNTER 2024-02-09 07:36 | Outpatient (CLI) | payer MEDICARE ==
[2024-02-09 12:12] LABS: ESTIMATED AVERAGE GLUCOSE 200 mg/dL (70-100); HEMOGLOBIN A1c% 8.6 % (4.27-6.07)
[2024-02-09 12:44] LABS: BASOPHILS # (AUTO) 0.1 10^3/uL (0.0-0.1); BASOPHILS % (AUTO) 1.2 %; EOSINOPHILS # (AUTO) 0.4 10^3/uL (0.0-0.7); EOSINOPHILS % (AUTO) 7.1 %; HCT - HEMATOCRIT 34.9 % (37.0-47.0); HGB - HEMOGLOBIN 11.2 g/dL (12.0-16.0); LYMPHOCYTES # (AUTO) 1.8 10^3/uL (1.5-3.5); LYMPHOCYTES % (AUTO) 31.5 %; MEAN CORPUSCULAR HEMOGLOBIN 29.9 pg (27.0-31.0); MEAN CORPUSCULAR HGB CONC 32.1 g/dL (32.0-36.0); MEAN CORPUSCULAR VOLUME 93.3 fL (81.0-99.0); MEAN PLATELET VOLUME 10.4 fL (7.9-10.8); MONOCYTES # (AUTO) 0.5 10^3/uL (0.0-1.0); MONOCYTES % (AUTO) 9.2 %; NEUTROPHILS # (AUTO) 2.9 10^3/uL (1.5-6.6); NEUTROPHILS % (AUTO) 50.8 %; PLT - PLATELET COUNT 262 10^3/uL (130-450); RED BLOOD COUNT 3.74 10^6/uL (4.20-5.40); RED CELL DISTRIBUTION WIDTH 12.2 % (12.0-15.0); WHITE BLOOD COUNT 5.7 x10^3/uL (4.8-10.8)
[2024-02-09 12:58] LABS: CREATININE,URINE 77.5 mg/dL
[2024-02-09 13:06] LABS: CALCIUM 9.4 mg/dL (8.5-10.3); CREATININE 2.1 mg/dL (0.6-1.3); PHOSPHORUS 3.8 mg/dL (2.5-5.0); POTASSIUM 4.4 mmol/L (3.5-4.5)
[2024-02-09 13:18] LABS: PROTEIN/CREATININE RATIO,URINE 3.2 (<=0.2)
[2024-02-09 13:26] LABS: THYROID STIMULATING HORMONE 1.59 uIU/mL (0.34-5.60)
== END 2024-02-09 07:37 | disposition home or self-care (01) ==
LOC: LAB.N 07:36
PROVIDERS: ATTEND Physician Assistant Medical
DX: E11.9 Type 2 diabetes mellitus without complications (principal); E05.90 Thyrotoxicosis, unspecified without thyrotoxic crisis or storm; N05.9 Unspecified nephritic syndrome with unspecified morphologic changes; N25.81 Secondary hyperparathyroidism of renal origin; E83.30 Disorder of phosphorus metabolism, unspecified; R80.9 Proteinuria, unspecified; D70.9 Neutropenia, unspecified; D63.1 Anemia in chronic kidney disease
CPT/HCPCS: 36415; 80048; 82570; 83036; 83970; 84100; 84156; 84443; 85025